=== PATIENT | female | born 1995 | race Two or more races ===

== ENCOUNTER 2020-06-15 06:55 | Day surgery (SDC) | payer OTHER ==
[2020-06-15] MEDS ORDERED: SYNTHROID50 MCG PO (12:54)
== END 2020-06-15 21:00 | disposition home or self-care (01) ==
LOC: CIR.AMB 06:55
PROVIDERS: ATTEND Specialist
DX: O03.4 Incomplete spontaneous abortion without complication (principal); Z20.828 Contact with and (suspected) exposure to other viral communicable diseases

== ENCOUNTER 2021-09-30 13:15 | Inpatient (IN) | payer OTHER ==
[~2021-09-30] VITALS: Ht 154.9 cm; Wt 74.8 kg
[~2021-09-30 13:15] MED LIST: SYNTHROID50 MCG PO
[2021-10-12] MEDS ORDERED: PRENATAL CAPLE1 EAC1 (18:35)
[2021-10-13] MEDS ORDERED: SYNTHROID75 MCG PO (04:11)
== END 2021-10-15 11:30 | disposition home or self-care (01) | DRG 805 ==
LOC: LDR 10-13 03:49 → OB/GYN 10-13 03:49 → LDR 10-13 16:15 → OB/GYN 10-13 19:05
PROVIDERS: ADMIT Specialist; ATTEND Specialist
PROC: 10E0XZZ Delivery of Products of Conception, External Approach (ICD-10-PCS; principal; 2021-10-13)
PROC: 0KQM0ZZ Repair Perineum Muscle, Open Approach (ICD-10-PCS; 2021-10-13)
PROC: 4A1HXFZ Monitoring of Products of Conception, Cardiac Rhythm, External Approach (ICD-10-PCS; 2021-10-13)
DX: O70.1 Second degree perineal laceration during delivery (principal); O75.3 Other infection during labor; Z37.0 Single live birth; N39.0 Urinary tract infection, site not specified; Z3A.39 39 weeks gestation of pregnancy; O99.284 Endocrine, nutritional and metabolic diseases complicating childbirth; E03.9 Hypothyroidism, unspecified

== ENCOUNTER 2021-10-12 18:24 | Outpatient (CLI) | payer OTHER ==
[2021-10-12] MEDS ORDERED: PRENATAL CAPLE1 EAC1 (18:35)
[2021-10-13] MEDS ORDERED: SYNTHROID75 MCG PO (04:11)
== END 2021-10-13 08:41 | disposition still patient (30) ==
LOC: OBS/DEL 18:24
PROVIDERS: ATTEND Specialist
DX: O47.1 False labor at or after 37 completed weeks of gestation (principal); Z3A.38 38 weeks gestation of pregnancy

== ENCOUNTER 2025-05-22 13:15 | Inpatient (IN) | payer OTHER ==
[~2025-05-22] VITALS: Ht 154.9 cm; Wt 77.1 kg
[~2025-05-22 13:15] MED LIST changes: +PEPCID AC20 MG PO; +PRENATAL CAPLE1 EAC1; +SYNTHROID75 MCG PO; +ZOFRAN8 MG PO
[2025-05-26] VITALS (14 sets, daily range): BP systolic 101–138; BP diastolic 42–87
[2025-05-26 07:26] LABS: URINE APPEARANCE Clear; URINE BILIRRUBIN Negative (NEGATIVE); URINE BLOOD Negative; URINE COLOR Yellow; URINE GLUCOSE Negative (NEGATIVE); URINE KETONE Negative (NEGATIVE); URINE LEUKOCYTE Trace; URINE NITRATE Negative; URINE PROTEIN Negative (NEGATIVE); URINE UROBILINOGEN 0.2 E.U./dl
[2025-05-26 07:27] LABS: URINE BACTERIA 1455.4 uL (0.0-1933); URINE EPITHELIAL CELLS 28.1 uL (0.0-38.8); URINE RBC 5.1 uL (0.0-20.8); URINE WBC 20.6 uL (0.0-23.2)
[2025-05-26 07:29] LABS: URINE CAST 0.58 uL (0.0-1.40)
[2025-05-26] MEDS ORDERED: RINGERS SOLUTION,LACTATED 1,000 ML IV SCH (07:30)
[2025-05-26] MEDS ORDERED: OXYTOCIN 500 ML IV SCH (07:30)
[2025-05-26] MEDS ORDERED: OXYTOCIN 20 UNITS/500ML RL PIGGYBAG IV ONE (07:38)
[2025-05-26 07:45] LABS: BASO % 0.5 % (0.1-1.2); EOS # 0.19 (0.04-0.54); EOS % 2.3 % (0.7-7.0); LYMPH # 1.93 (1.18-3.74); LYMPH % 23.8 % (19.3-53.1); MEAN PLATELET VOLUME 10.40 fl (9.4-12.4); MONO # 0.69 (0.24-0.82); MONO % 8.5 % (4.7-12.5); NEUT # 5.07 (1.56-6.13); NEUT % 62.7 % (34.0-71.1); RED CELL DISTRIBUTION WIDTH 13.8 % (11.6-14.4)
[2025-05-26 07:49] LABS: INR < 0.93
[2025-05-26 07:53] LABS: ALT/SGPT 13.0 U/L (12-78); AST/SGOT 15.0 U/L (15-37); BILIRUBIN TOTAL 0.31 mg/dL (0.3-1.2); BUN CREA RATIO 11.0 (7.0-25.0); CREATININE SERUM 0.54 mg/dL (0.55-1.02); GFR 132.56; GLOBULINA 3.2 G/DL (2.4-3.5); GLUCOSE FASTING 77.0 mg/dL (65-100); OSMOLALITY SERUM 278.0 MOSM/KG (275-295)
[2025-05-26] MEDS ORDERED: ERYTHROMYCIN BASE OPHT 1GM EACH TUBE OP ONE (12:15)
[2025-05-26] MEDS ORDERED: LIDOCAINE HCL 1% 10ML VIAL ONE (12:15)
[2025-05-26] MEDS ORDERED: OXYTOCIN 20 UNITS/1000ML RL PIGGYBAG IV ONE ×2 (12:15→16:15)
[2025-05-26] MEDS ORDERED: CHLORHEXIDINE GLUCONATE 120 ML BOTTLE TOP ONE ×2 (12:15→14:00)
[2025-05-26] MEDS ORDERED: OXYTOCIN 1,000 ML IV SCH (14:00)
[2025-05-26] MEDS ORDERED: LIDOCAINE HCL 1% 10ML VIAL IJ ONE (14:00)
[2025-05-26] MEDS ORDERED: ACETAMINOPHEN 500 MG GEL..CAP PO PRN (14:00)
[2025-05-26] MEDS ORDERED: BENZOCAINE/MENTHOL 90 ML BOTTLE TOP SCH (17:00)
[2025-05-26] MEDS ORDERED: HYDROCORTISONE 2.5% 30 GM TUBE RECTAL SCH (17:00)
[2025-05-26 17:22] LABS: BASO % 0.2 % (0.1-1.2); EOS # 0.01 (0.04-0.54); EOS % 0.1 % (0.7-7.0); LYMPH # 1.13 (1.18-3.74); LYMPH % 6.9 % (19.3-53.1); MEAN PLATELET VOLUME 10.50 fl (9.4-12.4); MONO # 0.84 (0.24-0.82); MONO % 5.1 % (4.7-12.5); NEUT # 14.31 (1.56-6.13); NEUT % 86.9 % (34.0-71.1); RED CELL DISTRIBUTION WIDTH 13.6 % (11.6-14.4)
[2025-05-27 00:01] VITALS: BP 98/62
[2025-05-27] MEDS ORDERED: SYNTHROID 50 MCG (MARCA ORIGINAL) PO SCH (06:00)
[2025-05-27 08:00] VITALS: BP 95/56
[2025-05-27 17:10] VITALS: BP 102/64
[2025-05-28] VITALS: BP 105/61
[2025-05-28 08:47] VITALS: BP 114/75
[2025-05-28 16:37] VITALS: BP 113/74
== END 2025-05-28 16:39 | disposition home or self-care (01) | DRG 807 ==
LOC: LDR 05-26 05:59 → OB/GYN 05-26 15:51 → SURG 06-02 13:15
PROVIDERS: ADMIT Specialist; ATTEND Specialist
PROC: 10E0XZZ Delivery of Products of Conception, External Approach (ICD-10-PCS; principal; 2025-05-26)
PROC: 0UQG7ZZ Repair Vagina, Via Natural or Artificial Opening (ICD-10-PCS; 2025-05-26)
PROC: 4A1HXCZ Monitoring of Products of Conception, Cardiac Rate, External Approach (ICD-10-PCS; 2025-05-26)
DX: O71.4 Obstetric high vaginal laceration alone (principal); Z37.0 Single live birth; Z3A.39 39 weeks gestation of pregnancy